=== PATIENT | female | born 1975 | race Hispanic/Latino ===

== ENCOUNTER 2016-11-19 15:30 | Emergency (ER) | payer BC ==
[2016-11-19 15:50] VITALS: BMI 28.3
--- NOTE | 2016-11-19 16:56 | ED PDOC ---
Arrival/HPI - General Chief Complaint: Flu-like Symptoms Time Seen by Provider: 11/19/16 16:19 Historian: Patient - History of Present Illness Narrative History of Present Illness (Text): 11/19/16 16:17 A 41 year old female, who is 33 weeks , is presenting to the emergency department with complaints of flu-like symptoms, which began 3 days ago. The patient reports feeling chills, feeling sweaty at times and cold other times, and feeling more tired than usual. Time/Duration: < week (3 days) Symptom Onset: Gradual Symptom Course: Unchanged Activities at Onset: Light Context: Home, Work Past Medical History - Provider Review Nursing Documentation Reviewed: Yes - Infectious Disease Hx of Infectious Diseases: None - Pulmonary Hx Asthma: Yes - Hematological/Oncological Hx Blood Disorders: No - Gastrointestinal Other/Comment: breast augmentation - Psychiatric Hx Substance Use: No - Anesthesia Hx Anesthesia: Yes Hx Anesthesia Reactions: No Hx Malignant Hyperthermia: No Family/Social History - Physician Review Nursing Documentation Reviewed: Yes Family/Social History: Unknown Family HX Smoking Status: Unknown If Ever Smoked Hx Alcohol Use: No Hx Substance Use: No Allergies/Home Meds Allergies/Adverse Reactions: Allergies No Known Allergies Allergy (Verified 11/19/16 15:50) Home Medications: Home Meds Medication Instructions Recorded Confirmed Albuterol Sulfate [Proair Hfa] 1 inh INH PRN PRN 11/19/16 11/19/16 Review of Systems - Review of Systems Constitutional: Fatigue, Other (alternating chills and "feeling hot"). absent: Fevers ENT: absent: Sore Throat Respiratory: absent: SOB, Cough Cardiovascular: absent: Chest Pain Gastrointestinal: Nausea (occasional). absent: Abdominal Pain, Diarrhea, Vomiting Genitourinary Female: absent: Dysuria, Vaginal Bleeding Neurological: absent: Headache, Focal Weakness Physical Exam Vital Signs Reviewed: Yes Vital Signs Temp Pulse Resp BP Pulse Ox 11/19/16 19:18 98.0 F 86 18 118/65 98 11/19/16 15:44 97.7 F 100 H 20 115/67 99 Temperature: Afebrile Blood Pressure: Normal Pulse: Regular Respiratory Rate: Normal Appearance: Positive for: Well-Appearing, Non-Toxic, Comfortable Pain Distress: None Mental Status: Positive for: Alert and Oriented X 3 - Systems Exam Head: Present: Atraumatic, Normocephalic Pupils: Present: PERRL Extroacular Muscles: Present: EOMI Mouth: Present: Moist Mucous Membranes Neck: Present: Normal Range of Motion Respiratory/Chest: Present: Clear to Auscultation, Good Air Exchange. No: Respiratory Distress, Accessory Muscle Use Cardiovascular: Present: Regular Rate and Rhythm, Normal S1, S2. No: Murmurs Abdomen: Present: Normal Bowel Sounds, Other (Gravid). No: Tenderness, Peritoneal Signs, Rebound, Guarding Back: Present: Normal Inspection Upper Extremity: Present: Normal Inspection. No: Cyanosis, Edema Lower Extremity: Present: Normal Inspection. No: Edema Neurological: Present: GCS=15, CN II-XII Intact, Speech Normal, Motor Func Grossly Intact, Normal Sensory Function, Other (no focal deficits) Skin: Present: Warm, Dry, Normal Color. No: Rashes Psychiatric: Present: Alert, Oriented x 3, Normal Insight, Normal Concentration Medical Decision Making ED Course and Treatment: Progress Notes: 11/19/16 19:12 FHR 129 on bedside US using m mode disc results w the pt. she is resting comfortably, appears well. comfortable w plan for OB f/u on monday and return if worse. - Lab Interpretations Lab Results: 11/19/16 17:00 11/19/16 17:00 Lab Results 11/19/16 17:30: Urine Color Yellow, Urine Appearance Clear, Urine pH 6.5, Ur Specific [place] 1.015, Urine Protein Negative, Urine Glucose (UA) Negative, Urine Ketones >=80, Urine Blood Negative, Urine Nitrate Negative, Urine Bilirubin Negative, Urine Urobilinogen 0.2, Ur Leukocyte Esterase Negative 11/19/16 17:00: Influenza Typ A,B (EIA) Negative for flu a/b 11/19/16 17:00: Sodium 135, Potassium 4.0, Chloride 104, Carbon Dioxide 21, Anion Gap 14, BUN 10, Creatinine 0.5, Est GFR ( Amer) > 60, Est GFR (Non- Af Amer) > 60, Random Glucose 74, Calcium 8.6, Total Bilirubin 0.3, AST 15, ALT 21, Alkaline Phosphatase 81, Total Protein 7.3, Albumin 3.8, Globulin 3.5, Albumin/Globulin Ratio 1.1 11/19/16 17:00: WBC 10.9 D, RBC 3.94, Hgb 11.9 L, Hct 34.8 L, MCV 88.3, MCH 30.2, MCHC 34.2, RDW 13.4, Plt Count 302, MPV 10.0, Gran % 77.1 H, Lymph % (Auto ) 14.9 L, [place] % (Auto) 6.5 H, Eos % (Auto) 1.4 L, Baso % (Auto) 0.1, Gran # 8.36 H, Lymph # 1.6, [place] # 0.7 H, Eos # 0.2, Baso # 0.01 - Scribe Statement The provider has reviewed the documentation as recorded by the Miriam Sykes Provider Scribe Attestation: All medical record entries made by the Scribe were at my direction and personally dictated by me. I have reviewed the chart and agree that the record accurately reflects my personal performance of the history, physical exam, medical decision making, and the department course for this patient. I have also personally directed, reviewed, and agree with the discharge instructions and disposition. Disposition/Present on Arrival - Present on Arrival Any Indicators Present on Arrival: No History of DVT/PE: No History of Uncontrolled Diabetes: No Urinary Catheter: No History of Decub. Ulcer: No History Surgical Site Infection Following: None - Disposition Have Diagnosis and Disposition been Completed?: Yes Diagnosis: Chills (without fever) Disposition: HOME/ ROUTINE Disposition Time: 19:09 Condition: GOOD Additional Instructions: Please follow up with your OBGYN doctor on Monday. Return to the ER for any worsening symptoms or for any other concerns. Referrals: PCP,NO [Primary Care Provider] - Follow up with primary Forms: [employer] ([employer])
[2016-11-19 17:19] LABS: BASO # 0.01 K/mm3 (0.0-2.0); BASO % 0.1 % (0.0-3.0); EOS # 0.2 (0.0-0.7); EOS % 1.4 % (1.5-5.0); GRAN # 8.36 (1.4-6.5); GRAN % 77.1 % (50.0-68.0); HEMOGLOBIN 11.9 gm/dL (12.0-16.0); LYMPH # 1.6 (1.2-3.4); LYMPH % 14.9 % (22.0-35.0); MEAN CELL VOLUME 88.3 fL (80.0-105.0); MEAN CORPUSCULAR HEMOGLOBIN 30.2 pg (25.0-35.0); MEAN CORPUSCULAR HGB CONC 34.2 g/dl (31.0-37.0); MONO # 0.7 (0.1-0.6); MONO % 6.5 % (1.0-6.0); PLATELET COUNT 302 10^3/uL (120.0-450.0); RBC 3.94 10^6/uL (3.5-6.1); RED CELL DISTRIBUTION WIDTH 13.4 % (11.5-14.5); WHITE BLOOD COUNT 10.9 10^3/ul (4.5-11.0)
[2016-11-19 17:23] LABS: ALB/GLOB RATIO 1.1 (1.1-1.8); ALBUMIN 3.8 g/dL (3.0-4.8); ALT/SGPT 21 U/L (7-56); AST/SGOT 15 U/L (15-39); BLOOD UREA NITROGEN 10 mg/dL (7-21); CALCIUM 8.6 mg/dL (8.4-10.5); GFR AFRICAN-AMERICAN > 60; GFR NON-AFRICAN AMERICAN > 60
[2016-11-19 17:43] LABS: PH,URINE 6.5 (4.7-8.0); URINE BILIRUBIN NEGATIVE (NEGATIVE); URINE BLOOD NEGATIVE (NEGATIVE); URINE GLUCOSE (UA) NEGATIVE (NEGATIVE); URINE LEUKOCYTE ESTERASE NEGATIVE Leu/uL (NEGATIVE); URINE NITRATE NEGATIVE (NEGATIVE); URINE PROTEIN NEGATIVE mg/dL (<30 mg/dL); URINE UROBILINOGEN 0.2 E.U./dL (<1 E.U./dL)
[2016-11-19 18:36] LABS: URINE APPEARANCE CLEAR (CLEAR); URINE COLOR YELLOW (YELLOW)
[2016-11-19 20:21] VITALS: BP 118/65; PULSE 86; RESP 18; TEMP 98; O2SAT 98
== END 2016-11-19 19:18 | disposition home or self-care (01) ==
LOC: ED 15:30
DX: R68.83 Chills (without fever) (principal)